=== PATIENT | female | born 1965 | race Caucasian/White ===

== ENCOUNTER 2019-03-14 06:42 | Day surgery (SDC) | payer BC, OTHER ==
[2019-03-14] MEDS ORDERED: MIDAZOLAM HCL 2MG/2ML VIAL IV ONE (06:43)
[2019-03-14] MEDS ORDERED: FENTANYL PF 100MCG/2ML VIAL IV ONE (06:43)
[2019-03-14] MEDS ORDERED: ONDANSETRON HCL IV 4 MG/2 ML VIAL IVP ONE (06:43)
[2019-03-14] MEDS ORDERED: PROPOFOL 10 MG/ML VIAL IV ONE (06:43)
[2019-03-14] MEDS ORDERED: KETOROLAC 30 MG/ML VIAL IVP ONE (06:43)
[2019-03-14] MEDS ORDERED: SEVOFLURANE 250 ML INH ONE (06:43)
[2019-03-14] MEDS ORDERED: LIDOCAINE 2% MDV (20MG/ML) 20ML VIAL IV ONE (06:43)
[2019-03-14] MEDS: RINGERS SOLUTION,LACTATED 1,000 ML IV ONE ×2 (07:19→09:10)
[2019-03-14] MEDS: ACETAMINOPHEN 1,000 MG/100 ML BTL IVPB ONE (07:24)
[2019-03-14] MEDS: BUPIVACAINE 0.25% W/EPI MPF 30ML VIAL SQ ONE (08:51)
[2019-03-14] MEDS: HYDROCODONE/APAP 5/325MG TABLET PO ONE (09:33)
--- NOTE | 2019-03-15 11:20 | Operative Note ---
DATE OF SURGERY: 03/14/2019 SURGEON: Linden Hager DO PREOPERATIVE DIAGNOSES: 1. Torn medial meniscus, right knee. 2. Chondromalacia of the right knee. POSTOPERATIVE DIAGNOSES: 1. Torn medial and lateral meniscus, right knee. 2. Chondromalacia of the patella, lateral femoral condyle, and medial femoral condyle, right knee. OPERATION: 1. Arthroscopic partial medial and lateral meniscectomy, right knee. 2. Arthroscopic chondroplasty of medial femoral condyle, lateral femoral condyle, and patella, right knee. DESCRIPTION OF PROCEDURE: This 53-year-old female was taken to the operating room and placed in the supine position on the operating room table. A general anesthetic was administered. The right lower extremity was elevated, exsanguinated, and the tourniquet inflated to 300 mmHg. Arthroscopic knee stephen applied. Right knee prepped with Hibiclens and draped in the usual sterile fashion. An inferolateral portal was established for the 4 mm arthroscope, and initial evaluation of the joint demonstrated normal appearance of the suprapatellar pouch but grade 2 chondromalacia of the entire articulating surface of the patella was present mostly involving the medial facet, the median ridge. An inferomedial portal was established and chondroplasty was performed of the patella to stabilize the articular cartilage there. The trochlea, however, appeared to be pristine. The medial and lateral gutters were examined and found to be normal. The medial compartment was entered, and a complex tear of the posterior horn of the medial meniscus was present. The tear extending from near the root although the root was not detached. It extended around to approximately the 2-o'clock position with the apex being at the 12:30 to 1-o'clock position. Utilizing basket forceps and rotating shaver, we resected the unstable fragments of the medial meniscus most of the posterior horn. There was severe grade 3 chondromalacia of the entire weightbearing surface of the medial femoral condyle from as far back posteriorly as could be seen to the meniscal rest. A chondroplasty was performed to stabilize the articular cartilage there. The intracondylar notch was examined and found to be normal. The lateral compartment was entered, and severe damage to the articular cartilage to the lateral compartment was also present with severe grade 3 changes noted and very near a full-thickness defect in the center of the weightbearing surface. Chondroplasty was performed to stabilize the articular cartilage. There was also a radial tear of the lateral meniscus at approximately the 9-o'clock position of the body. This was resected to a stable meniscus. This extended around to the anterior horn as well with disruption of the meniscus being from about the 6- to 7-o'clock position around to the 10-o'clock position. Utilizing the basket forceps and rotating shaver, we resected unstable fragments of the lateral meniscus and it was re-probed and confirmed to be stable. The joint was copiously irrigated and suctioned. The instruments were removed. The portals infiltrated with 0.25% Marcaine with epinephrine. Sterile dressings applied, tourniquet and knee stephen released, and the patient taken to the recovery room in satisfactory condition. GROSS PATHOLOGY: This patient demonstrated severe grade 3 chondromalacia of the medial femoral condyle, lateral femoral condyle with grade 2 changes noted at the patella. The patient also had a complex tear of the posterior horn of the medial meniscus and the body of the lateral meniscus as discussed above. RASHEEDA
== END 2019-03-14 09:57 | disposition home or self-care (01) ==
LOC: SUR 06:42
PROVIDERS: ATTEND Orthopaedic Surgery
DX: S83.231A Complex tear of medial meniscus, current injury, right knee, initial encounter (principal); S83.271A Complex tear of lateral meniscus, current injury, right knee, initial encounter; M94.261 Chondromalacia, right knee; I10 Essential (primary) hypertension; E78.00 Pure hypercholesterolemia, unspecified; N30.10 Interstitial cystitis (chronic) without hematuria; J44.9 Chronic obstructive pulmonary disease, unspecified; K21.9 Gastro-esophageal reflux disease without esophagitis; E03.9 Hypothyroidism, unspecified
CPT/HCPCS: J1885; J2405; J7120